=== PATIENT | female | born 1945 | race Caucasian/White ===

== ENCOUNTER → 2019-05-01 13:21 | Outpatient (CLI) | payer OTHER, SELFPAY ==
--- NOTE | 2019-05-01 | DI.MRI.S_ITS ---
PROCEDURE: MR KNEE LT WO CON INDICATIONS: Unilateral primary osteoarthritis, left knee TECHNIQUE: Noncontrast sagittal PD fast spin echo and T2 fast spin echo with fat saturation, sagittal 3-D FLASH with fat saturation; coronal T1 spin echo and PD fast spin echo with fat saturation, and axial PD fast spin echo with fat saturation through the knee. COMPARISON: [facility], CR, XR KNEE ARTHRITIC SERIES BI, 04/18/2019, 11:18. FINDINGS: Image quality: Excellent. Menisci: There is medial meniscal extrusion and severe degenerative tear involving the body and the posterior horn of the medial meniscus. Degenerative tear is also seen in the free edge of the body of the lateral meniscus. The meniscal root ligaments appear intact. Cruciate ligaments: The anterior and posterior cruciate ligaments appear intact. Medial structures: The medial collateral ligament appears intact. The semimembranosus tendon insertions meniscocapsular junction appear intact. Visualized portions of the pes anserinus tendons appear normal. No abnormal bursal fluid. Lateral structures: The lateral collateral ligament, the biceps femoris tendon and iliotibial band are intact. The popliteus tendon appears normal. Anterior structures: The quadriceps and patellar tendons appear intact. Patellar alignment is normal. No femoral trochlear dysplasia or ventral trochlear prominence. No edema in the infrapatellar fat pad. Bones and cartilage: No bone marrow contusions or fractures. There is tricompartmental cartilage loss, most pronounced in the medial and lateral femorotibial compartment. There is pulmonary edema in the medial tibial plateau Joint space: There is moderate to large knee joint fluid. No Mann's cyst. A small synovial cyst is noted adjacent to the proximal tibiofibular joint. Normal appearing synovial plicae are incidentally noted. IMPRESSION: 1. Medial meniscal extrusion and severe degenerative tear of the medial meniscus. 2. Degenerative tear of the free edge of the body of the lateral meniscus. 3. Tricompartmental cartilage loss, most pronounced in the medial femorotibial compartment with associated bone marrow edema in the medial tibial plateau likely secondary to bone on bone. 4. Moderate to large knee joint effusion. 5. A small synovial cyst is just into the proximal tibiofibular joint. Dictated by: Gaurav Martínez M.D. on 05/01/2019 at 15:34 Approved by: Gaurav Martínez M.D. on 05/01/2019 at 17:33
== END ==
PROVIDERS: Visit Provider Orthopaedic Surgery
DX: M17.12 Unilateral primary osteoarthritis, left knee (principal); M23.222 Derangement of posterior horn of medial meniscus due to old tear or injury, left knee; M23.201 Derangement of unspecified lateral meniscus due to old tear or injury, left knee; M25.462 Effusion, left knee; M71.38 Other bursal cyst, other site
CPT/HCPCS: 73721